=== PATIENT | female | born 2000 | race Caucasian/White ===

== ENCOUNTER 2018-10-08 17:03 | Emergency (ER) | payer SELFPAY | END 2018-10-08 18:10 | disposition home or self-care (01) | LOC: ERS 17:03 | DX: K60.2 Anal fissure, unspecified (principal); F17.210 Nicotine dependence, cigarettes, uncomplicated; J30.2 Other seasonal allergic rhinitis; Z79.899 Other long term (current) drug therapy | CPT/HCPCS: 99283 ==